=== PATIENT | male | born 1995 | race Caucasian/White ===

== ENCOUNTER 2017-08-18 14:26 | Emergency (ER) | payer MEDICAID ==
[2017-08-18] MEDS: HYDROCODONE/APAP (10/325) TAB PO (14:54)
[2017-08-18] MEDS: DIPHTH/TET/ACEL PERTUSS (ADULT) 0.5 ML VIAL IM* (15:15)
== END 2017-08-18 15:49 | disposition home or self-care (01) ==
LOC: FTE 14:26
DX: S60.132A Contusion of left middle finger with damage to nail, initial encounter (principal); S62.633A Displaced fracture of distal phalanx of left middle finger, initial encounter for closed fracture; W27.0XXA Contact with workbench tool, initial encounter; Y92.89 Other specified places as the place of occurrence of the external cause; Z23 Encounter for immunization
CPT/HCPCS: 11740; 73140; 90471; 90715; 99283-25

== ENCOUNTER 2018-07-09 16:21 | Emergency (ER) | payer SELFPAY, MEDICAID | END 2018-07-09 17:29 | disposition home or self-care (01) | LOC: E/R 16:21 | DX: M54.40 Lumbago with sciatica, unspecified side (principal) | CPT/HCPCS: 99283 ==